=== PATIENT | female | born 1970 | race Caucasian/White ===

== ENCOUNTER 2021-05-16 10:26 | Emergency (ER) | payer MEDICAID ==
[2021-05-16] MEDS ORDERED: Sodium Chloride 0.9% 10 ML Syringe FLUSH PRN (11:07)
[2021-05-16] MEDS ORDERED: Sodium Chloride 0.9% 1,000 ML IV SCH (11:15)
[2021-05-16] MEDS ORDERED: Ondansetron 4 MG Tab.DIS PO ONE (12:02)
[2021-05-16] MEDS ORDERED: Lactated Ringers 1,000 ML IV ONE (12:30)
== END 2021-05-16 14:15 | disposition home or self-care (01) ==
LOC: JD.ED 10:26
DX: U07.1 COVID-19 (principal)
CPT/HCPCS: 87635; 99284; A9270; J7030; J7120; U0002

== ENCOUNTER 2021-07-01 21:51 | Emergency (ER) | payer MEDICAID ==
[2021-07-01] MEDS ORDERED: Sodium Chloride 0.9% 10 ML Syringe FLUSH PRN (22:10)
[2021-07-01] MEDS ORDERED: Ondansetron 4 MG/2 ML SDV IVPUSH ONE (22:12)
[2021-07-01] MEDS ORDERED: LORazepam 2 MG/ML SDV IVPUSH ONE (22:12)
[2021-07-01] MEDS ORDERED: Sodium Chloride 0.9% 1,000 ML IV ONE (22:12)
[2021-07-01] MEDS ORDERED: Potassium Chloride 20 MEQ Tab.ER PO ONE (23:10)
[2021-07-01] MEDS ORDERED: LORazepam 1 MG Tab PO ONE (23:10)
[2021-07-01] MEDS ORDERED: Acetaminophen 325 MG Tab PO ONE (23:11)
== END 2021-07-01 23:50 | disposition home or self-care (01) ==
LOC: JD.ED 21:51
DX: F41.0 Panic disorder [episodic paroxysmal anxiety] (principal); F10.10 Alcohol abuse, uncomplicated; Z72.0 Tobacco use; Z86.16 Personal history of COVID-19
CPT/HCPCS: 36415; 80053; 85025; 93005; 96374; 96375; 99284; A9270; J2060; J2405; J7030; 93010